=== PATIENT | female | born 1960 | race Caucasian/White ===

== ENCOUNTER 2021-03-20 14:05 | Outpatient (CLI) | payer OTHER ==
--- NOTE | 2021-03-21 13:54 | Mammography Report ---
BILATERAL DIGITAL SCREENING MAMMOGRAM 3D/2D WITH EXAGGERATED CC: 03/20/2021 CLINICAL: Routine screening. Comparison is made to exams dated: 12/12/2015 mammogram, 12/03/2013 mammogram, and 03/15/2011 mammogram - [facility]. There are scattered fibroglandular elements in both breasts. There is a possible new irregular equal density architectural distortion in the right breast middle d epth lateral region seen on the craniocaudal view only. Finding is seen best on tomography. No other significant masses, calcifications, or other findings are seen in either breast. IMPRESSION: INCOMPLETE: NEEDS ADDITIONAL IMAGING EVALUATION The possible new irregular equal density architectural distortion in the right breast is indeterminat e. Additional views with possible ultrasound are recommended. This exam was interpreted at Station ID: [id number]. NOTE: For mammograms, a report in lay terms will be sent to the patient. Approximately 15% of breast malignancies will not be visualized mammographically. In the management of a palpable breast mass, a negative mammogram must not discourage biopsy of a clinically suspicious lesion. Electronically Signed By: Vikram Coreas M.D. aty/:03/20/2021 16:33:55 ACR BI-RADS Category 0: Incomplete 3340F PARENCHYMAL PATTERN: (A) - The breast(s) demonstrate(s) scattered fibroglandular densities. BI-RADS CATEGORY: (0) - 0 Mammo and [place] [id number] Immediate follow-up LATERALITY: (R)
== END 2021-03-20 14:06 | disposition home or self-care (01) ==
LOC: DI.S 14:05
DX: Z12.31 Encounter for screening mammogram for malignant neoplasm of breast (principal); R92.8 Other abnormal and inconclusive findings on diagnostic imaging of breast

== ENCOUNTER 2022-12-10 08:00 | Outpatient (CLI) | payer OTHER | END 2022-12-10 23:59 | disposition home or self-care (01) | LOC: LAB.S 08:00 | PROVIDERS: ATTEND Emergency Medicine | DX: A09 Infectious gastroenteritis and colitis, unspecified (principal) | CPT/HCPCS: 87045; 87046; 87177; 87427 ==